=== PATIENT | male | born 1945 ===

== ENCOUNTER 2022-07-04 09:04 | Day surgery (SDC) | payer MEDICARE, BC ==
[~2022-07-04 09:04] MED LIST: Brimonidine 0.2% Ophth Soln 5 ML Bottle EYERT SCH; Cefuroxime 10 MG/ML SYRINGE EYELF SCH; Cefuroxime 10 MG/ML SYRINGE EYERT SCH; Lidocaine 1% PF 2 ML SDV INJECT SCH; Phenylephrine 2.5% Ophth Soln 2 ML Bot EYERT SCH; Pilocarpine 4% Ophth Soln 15 ML Bot EYELF SCH; Pilocarpine 4% Ophth Soln 15 ML Bot EYERT SCH; Polymyxin B/Trimethoprim 10 ML Bottle EYERT SCH; Tetracaine HCl/PF 0.5% 4 ML Bottle EYEBOTH SCH; Tropicamide 1% Ophth Soln 15 ML Bottle EYERT SCH
[2022-07-04] MEDS: Polymyxin B/Trimethoprim 10 ML Bottle EYELF SCH ×3 (10:25→12:30)
[2022-07-04] MEDS: Brimonidine 0.2% Ophth Soln 5 ML Bottle EYELF SCH ×3 (10:30→12:30)
[2022-07-04] MEDS: Phenylephrine 2.5% Ophth Soln 2 ML Bot EYELF SCH ×5 (10:35→12:05)
[2022-07-04] MEDS: Tropicamide 1% Ophth Soln 15 ML Bottle EYELF SCH ×4 (10:40→11:28)
[2022-07-04] MEDS: Tetracaine HCl/PF 0.5% 4 ML Bottle EYEBOTH SCH ×4 (11:35→12:16)
[2022-07-04 12:50] VITALS: BP 152/74; PULSE 64
== END 2022-07-04 12:45 | disposition home or self-care (01) ==
LOC: JD.SDS 09:04
PROVIDERS: ATTEND Ophthalmology
DX: H26.9 Unspecified cataract (principal); I10 Essential (primary) hypertension; K21.9 Gastro-esophageal reflux disease without esophagitis; E78.00 Pure hypercholesterolemia, unspecified; I25.10 Atherosclerotic heart disease of native coronary artery without angina pectoris; Z95.5 Presence of coronary angioplasty implant and graft; Z79.899 Other long term (current) drug therapy; Z88.0 Allergy status to penicillin
CPT/HCPCS: 66984; A9270; J0697; V2632; J3490